=== PATIENT | male | born 1995 | race Caucasian/White ===

== ENCOUNTER 2020-09-14 14:20 | Emergency (ER) | payer OTHER, SELFPAY ==
[2020-09-14 14:30] VITALS: BP 133/83; PULSE 94; RESP 20; TEMP 36.7; O2SAT 98; BMI 28.4
--- NOTE | 2020-09-14 14:35 | XR_ITS ---
PROCEDURE: XR HAND RT MIN 3V CLINICAL INDICATION: pain COMPARISON: No exams were available for comparison FINDINGS: No acute fractures or dislocations. Bone density is normal. The carpals, metacarpals and phalanges are unremarkable. Soft tissue swelling of the 1st digit. IMPRESSION: No acute fractures or dislocations. Dictated by: Teena Martin 09/14/2020 15:11 Teena Martin in [place] 09/14/2020 15:11
--- NOTE | 2020-09-14 15:10 | HMH.EDUTC ---
[facility] [place] Clinical Impression: Superficial abrasion, Need for tetanus, diphtheria, and acellular pertussis (Tdap) vaccine Crushing injury of right thumb Qualifiers: Encounter type: initial encounter Qualified Code(s): S67.01XA - Crushing injury of right thumb, initial encounter Disposition: Home, Self-Care Condition on Discharge: Good Instructions: DI for Crush Injury Additional Instructions: Rest the extremity, Elevate the extremity as tolerated while you are resting. Take ibuprofen for pain. I sent in a prescription to your pharmacy. Follow up with Dr. Martin (orthopedics). I put in a referral but you need to call his office and schedule an appointment. Follow up with your regular doctor. GO TO THE ER FOR ANY WORSENING SYMPTOMS Prescriptions: Ibuprofen [Ibuprofen 800mg Tablet] 800 mg PO Q8HP PRN #30 tab PRN Reason: Moderate Pain Transmission Status: Received by [facility] Mupirocin [Bactroban 2% Ointment 22gm tube] 1 applicatio TP TID 7 Days #1 tube Transmission Status: Received by [facility] Referrals: Jeni Mcarthur APRN [Primary Care Provider] - Zackery Martin MD [Staff Physician] - Forms: Work/School Release Time of Disposition: 15:24 Medical Decision Making - Medical Records Medical records reviewed: No: I reviewed the patient's medical records. - Homero Inquiry Pt receiving controlled substance: No Vital Signs: 09/14/20 14:30 09/14/20 15:32 Temperature 98.0 F 98.0 F Temperature Source Oral Pulse Rate 94 H Pulse Rate [Right Brachial] 94 H Respiratory Rate 20 20 Blood Pressure 133/83 Blood Pressure [Right Arm] 133/83 Blood Pressure Mean [Right Arm] 99 Blood Pressure Source [Right Arm] Automatic Cuff Blood Pressure Position [Right Arm] Sitting 02 Sat by Pulse Oximetry 98 Oxygen Delivery Method Room Air Orders (Tests/Meds): ED MEDICATIONS Discontinued Medications Generic Name Dose Route Start Last Admin Trade Name Freq PRN Reason Stop Dose Admin Tetanus/Reduced Diphtheria/Acell Pertussis 0.5 ml 09/14/20 14:47 09/14/20 14:53 Tet/Diphth/Pert-Adult 0.5ml Syringe IM 09/14/20 14:48 0.5 ml .ONCE ONE Administration - Radiology Data #1 Image(s): Hand Image Reviewed: Yes I reviewed the patient's radiology image, Yes I have reviewed radiologist's interpretation Preliminary Findings: Normal/NAD, No Fracture Seen [facility] [place] - General Stated complaint: [id number] Rt thumb injury Time Seen by Provider: 09/14/20 14:40 Mode of Arrival: Ambulatory Source of Information: Patient Limitations: No Limitations Description of Symptoms (Recalled from Triage Doc. by RN): PATIENT STATES THAT WHILE AT WORK TODAY HIS RIGHT THUMB BECAME CAUGHT BETWEEN A CHAIN AND THE TAIL GATE OF A TRUCK. SWELLING AND ABRASIONS NOTED HEENT Symptoms (Recalled from RN notes): No Resp Symptoms (Recalled from RN notes): No Skin Symptoms (Recalled from RN notes): No MS Symptoms (Recalled from RN notes): Yes Functional Status (Recalled from RN notes): WNL - History of Present Illness Provider Complaint: He was at work today when a dump truck bed tail gate fell open. As he was trying to catch it, his right thumb got hung between the tail gate and the chain on it. He is having right thumb pain and swelling. He also has superficial abrasion on his right hand. He denies any other injury. His tetanus immunization is not up to date. - Related Data Previous Rx's Medication Instructions Recorded Ibuprofen [Ibuprofen 800mg 800 mg PO Q8HP PRN #30 tab 09/14/20 Tablet] Mupirocin [Bactroban 2% Ointment 1 applicatio TP TID 7 Days #1 tube 09/14/20 22gm tube] Allergies Allergy/AdvReac Type Severity Reaction Status Date / Time No Known Allergies Allergy Verified 09/14/20 14:46 - Worker's Comp Is this a Worker's Comp case?: No [facility] History - Hepatitis A Screen Drug use history?: No High risk sexual behaviors?: No History of
[2020-09-14 15:32] VITALS: BP 133/83; PULSE 94; RESP 20; TEMP 36.7; O2SAT 98
== END 2020-09-14 15:36 | disposition home or self-care (01) ==
PROVIDERS: Emergency Provider Nurse Practitioner Family; PCP Nurse Practitioner Family
DX: S67.01XA Crushing injury of right thumb, initial encounter (principal); W23.0XXA Caught, crushed, jammed, or pinched between moving objects, initial encounter; Y92.69 Other specified industrial and construction area as the place of occurrence of the external cause; Y99.0 Civilian activity done for income or pay; Z23 Encounter for immunization
CPT/HCPCS: 73130; 90471; 90715; 99202; G0463

== ENCOUNTER 2021-07-12 12:13 | Emergency (ER) | payer OTHER, SELFPAY ==
[2021-07-12 12:15] VITALS: BP 136/58; PULSE 89; RESP 18; TEMP 36.7; O2SAT 98; BMI 28.4
--- NOTE | 2021-07-12 12:22 | PC.NURSE ---
ED MD at bedside
--- NOTE | 2021-07-12 12:24 | XR_ITS ---
FINAL REPORT CLINICAL HISTORY: trauma to distal 3rd digit FINDINGS: LEFT HAND: Three views of the left hand were obtained. There is a nondisplaced tuft fracture of the 3rd distal phalanx. Visualized joint spaces are normally aligned. There soft tissue swelling of the tip of the 3rd digit. IMPRESSION: Tuft fracture of the 3rd distal phalanx with soft tissue swelling. Reviewed, Interpreted and Dictated by Sammy Andrade III, MD Transcribed by Jagruti Lion Authenticated by Sammy Andrade III, MD on 07/12/2021 01:06:45 PM [facility]
--- NOTE | 2021-07-12 12:25 | PC.NURSE ---
Patient to radiology with radiation therapy technologist
--- NOTE | 2021-07-12 12:36 | PC.NURSE ---
pt states he took 600mg motrin before arrival
--- NOTE | 2021-07-12 12:43 | HMH.EDGENADL ---
ED Disposition Clinical Impression: Open fracture of phalanx of left middle finger Qualifiers: Encounter type: initial encounter Phalanx: distal Fracture alignment: nondisplaced Qualified Code(s): S62.663B - Nondisplaced fracture of distal phalanx of left middle finger, initial encounter for open fracture Disposition: Home, Self-Care Condition on Discharge: Good Instructions: DI for Laceration Repair Prescriptions: Amoxicillin/Potassium Clav [Amox-Clav 875-125 mg Tablet] 1 tab PO BID #14 tab Transmission Status: Pending to [facility] Ibuprofen [Ibuprofen 800mg Tablet] 800 mg PO TIDP PRN #20 tab PRN Reason: Moderate Pain Transmission Status: Pending to [facility] Referrals: Jeni Mcarthur APRN [Primary Care Provider] - Benjamin Agarwal MD [Referring] - - Critical Care Critical Care Time: No Attestation: On 07/12/21, the high probability of a clinically significant, sudden or life threatening deterioration of the following system(s) required my full and direct attention, intervention and personal management. The time I documented below is in addition to time spent performing reported procedures but includes the following listed in this critical care notation. Medical Decision Making - Medical Records Medical records reviewed: Yes: I reviewed the patient's medical records. - Homero Inquiry Pt receiving controlled substance: No Vital Signs: 07/12/21 12:15 Temperature 98.1 F Temperature Source Oral Pulse Rate [Left Radial] 89 Respiratory Rate 18 Blood Pressure [Right Arm] 136/58 L Blood Pressure Mean [Right Arm] 84 Blood Pressure Source [Right Arm] Automatic Cuff Blood Pressure Position [Right Arm] Sitting 02 Sat by Pulse Oximetry 98 Oxygen Delivery Method Room Air Orders (Tests/Meds): ED MEDICATIONS Discontinued Medications Generic Name Dose Route Start Last Admin Trade Name Freq PRN Reason Stop Dose Admin Ibuprofen 800 mg 07/12/21 12:24 07/12/21 12:36 Ibuprofen 400 Mg Tablet PO 07/12/21 12:25 Not Given ONCE ONE - Radiology Data #1 Image(s): Hand Image Reviewed: Yes I reviewed the patient's radiology results, Yes I reviewed the patient's radiology image, Yes I have reviewed radiologist's interpretation IMPRESSION: Tuft fracture of the 3rd distal phalanx with soft tissue swelling. - Reevaluation(s) Time: 13:27 Reevaluation #1: On reevaluation, the patient is feeling much better. Tolerated procedure well. We placed patient in immobilizer. Also placed on antibiotics. He will need to follow-up with hand surgery. Given strict return precautions. Verbalized understanding. Medical Decision Narrative: 25-year-old male presented to the emergency department with injury to his left finger. Concern for crush injury versus fracture. Tetanus up-to-date. Work-up initiated. General Adult HPI - General Chief complaint: Wound/Laceration Stated complaint: wc 07/12/21 lt middle finger Time Seen by Provider: 07/12/21 12:20 Mode of Arrival: Ambulatory Limitations: No Limitations Description of Symptoms (Recalled from ER Triage Doc. by RN): c/o cut to left middle and ring finger after being smashed in between culvert at work - History of Present Illness HPI narrative: This is a 25-year-old male presented to the emergency department with a injury to his left hand. Patient states that he smashed his fingers while he was at work. He is having some pain in his middle and ring finger left hand. There is small laceration to the distal aspect of the middle finger. No active bleeding at this time. The patient has worsening pain with movement. Denies any other injuries. Tetanus up-to-date. Not have any chest pain or shortness of breath. No headache or change in vision. No vomiting or diarrhea. - Related Data Previous Rx's Medication Instructions Recorded Amoxicillin/Potassium Clav 1 tab PO BID #14 tab 07/12/21 [Amox-Clav 875-125 mg Tablet*
--- NOTE | 2021-07-12 13:17 | PC.NURSE ---
ED MD at bedside for update on POC
[2021-07-12 13:41] VITALS: BP 136/58; PULSE 89; RESP 18; TEMP 36.7; O2SAT 98
== END 2021-07-12 13:41 | disposition home or self-care (01) ==
PROVIDERS: Emergency Provider Emergency Medicine; PCP Nurse Practitioner Family
DX: S62.663B Nondisplaced fracture of distal phalanx of left middle finger, initial encounter for open fracture (principal); S60.10XA Contusion of unspecified finger with damage to nail, initial encounter; Z79.1 Long term (current) use of non-steroidal anti-inflammatories (NSAID); X58.XXXA Exposure to other specified factors, initial encounter; Y92.69 Other specified industrial and construction area as the place of occurrence of the external cause
CPT/HCPCS: 12001; 73130; 99283

== ENCOUNTER 2022-07-25 17:24 | Emergency (ER) | payer OTHER, SELFPAY ==
[2022-07-25 17:35] VITALS: BP 140/91; PULSE 90; RESP 16; TEMP 36.8; O2SAT 98; BMI 25.4
--- NOTE | 2022-07-25 17:36 | PC.NURSE ---
HS aware of needle stick
--- NOTE | 2022-07-25 17:48 | PC.NURSE ---
[facility] HERE D[facility]
--- NOTE | 2022-07-25 17:57 | HMH.EDGENADL ---
Discharge Plan Disposition Patient Disposition: Home, Self-Care Condition: Good Prescriptions Prescriptions: No Action ibuprofen 800 MG tablet 800 mg PO TIDP PRN (Reason: Moderate Pain) Qty: 20 0RF amoxicillin-pot clavulanate 1 EACH tablet 1 tab PO BID Qty: 14 0RF Referrals Follow up/Referrals: Provider,Referral, [Primary Care Provider] - See instructions Activity Restrictions/Add. Instructions Additional Instructions/Restrictions: Follow-up with employee health for test results and further treatment. Clinical Impressions Clinical Impression: Needlestick injury accident Instructions Patient Instructions: DI for Accidental Exposure to Body Fluids Discharge ED Provider: Capo Hernandez General Adult HPI General Chief complaint: Extremity Injury, Upper Stated complaint: WC 07/25@1720 finger stick Time Seen by Provider: 07/25/22 17:42 Mode of Arrival: Ambulatory Source of Information: Patient Limitations: No Limitations Description of Symptoms (Recalled from ER Triage Doc. by RN): Presents while working after sustaining a needle stick. Pt states he was in the breakroom where he was throwing away what he thought was trash from the table, however ended up being an uncovered lancet puncturing right thumb. Pt washed site upon arrival to ED. 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 He was stuck in the thumb pad of his right thumb with a lancet that had been left on the table that he thought was a piece of trash. He does not know whether he has been immunized against hepatitis B. The source of the lancet is unknown, it is unknown whether it was used, and if so the HIV or hepatitis status of the person who may have used it. He is up-to-date on tetanus status. Related Data Previous Rx's Medication Instructions Recorded amoxicillin 875 mg-potassium 1 tab PO BID #14 tabs 07/12/21 clavulanate 125 mg tablet ibuprofen 800 mg tablet 800 mg PO TIDP PRN Moderate Pain 07/12/21 #20 tabs Allergies Allergy/AdvReac Type Severity Reaction Status Date / Time No Known Allergies Allergy Verified 11/03/20 09:06 [facility] Disclaimer: The information contained in this section may have been updated after the patient was seen, as this information can be updated by other users. Social History Smoking Status: Unknown if ever smoked alcohol intake: never current occupational status: employed Travel in the last 8 weeks: None ROS Obtained: Yes Systems reviewed as appropriate & no additional complaints except as documented Constitutional Constitutional: Denies fever(s) and Denies weakness Musculoskeletal Musculoskeletal: Denies numbness Integumentary/Breasts Skin/Breast: Reports wounds Neurologic Neurologic: Denies numbness and Denies weakness Physical Exam General General appearance: alert and in no apparent distress Chest Chest inspection: Present normal inspection and symmetric chest wall rise Respiratory Respiratory exam: Absent respiratory distress Cardiovascular Cardiovascular exam: Present regular rate Expanded Upper Extremity Exam Right: Hand L/R front image: 1. other (Tiny puncture wound) Neurological Exam Neurological exam: Present alert and oriented X3; Absent motor sensory deficit Psychiatric Psychiatric exam: Present normal affect and normal mood Skin Skin exam: Present warm and dry Medical Decision Making Homero Inquiry Pt receiving controlled substance: No Vital Signs: 07/25/22 17:35 Temperature 98.3 F Temperature Source Oral Pulse Rate [Right] 90 Respiratory Rate 16 Blood Pressure [Left Arm] 140/91 H Blood Pressure Mean [Left Arm] 107 02 Sat by Pulse Oximetry 98 Oxygen Delivery Method Room Air Lab Data Lab Results 07/25/22 17:50: WBC 7.6, RBC 5.42, Hgb 16.0, Hct 48.2, MCV 88.9, MCH 29.4, MCHC 33.1, RDW 13.0, Plt Count 283, MPV 8.5, Neut % (Aut
[2022-07-25 18:01] LABS: Basophils # 0.1 K/mm3 (0-0.2); Basophils % 1.3 % (0.1-2.0); Eosinophils # 0.2 K/mm3 (0.0-0.4); Eosinophils % 2.9 % (0.1-12.0); Hematocrit 48.2 % (42.0-52.0); Lymphocytes # 2.1 K/mm3 (0.7-4.5); Lymphocytes % 28.1 % (10-50); Mean Corpuscular HGB Conc 33.1 g/dL (31.8-35.4); Mean Corpuscular Hemoglobin 29.4 pg (27.0-31.2); Mean Corpuscular Volume 88.9 fl (80-94); Mean Platelet Volume 8.5 fl (7.4-10.4); Monocytes # 0.4 K/mm3 (0.1-1.0); Monocytes % 4.8 % (1.7-9.3); Neutrophils # 4.8 K/mm3 (1.8-7.8); Neutrophils % 62.9 % (37.0-80.0); Platelet Count 283 K/mm3 (142-424); Red Blood Count 5.42 M/mm3 (4.60-6.20); White Blood Count 7.6 K/mm3 (4.8-10.8)
[2022-07-25 18:10] LABS: Bilirubin,Unconjugated 0.2 mg/dL (0.0-1.1)
[2022-07-25 18:11] LABS: Alanine Aminotransferase 36 U/L (12-78); Albumin Level 5.4 g/dl (3.5-5.0); Alkaline Phosphatase 74 U/L (38-126); Aspartate Amino Transferase 37 U/L (17-59); Bilirubin,Direct 0.3 mg/dl (0.0-0.4); Bilirubin,Indirect 0.2 mg/dL (0.0-0.9); Bilirubin,Total 0.5 mg/dl (0.2-1.3); Total Protein,Serum 8.5 g/dl (6.3-8.2)
[2022-07-25 18:14] LABS: Activated Partial Thrombo Time 29.3 seconds (22.8-30.6); INR 1.06 (0.9-1.1); Prothrombin Time 11.4 seconds (10.1-12.5)
[2022-07-25 18:30] VITALS: BP 144/92; PULSE 84; RESP 20; TEMP 37.1; O2SAT 99
--- NOTE | 2022-07-25 18:32 | PC.NURSE ---
discussed education with pt. Naranjo at the bedside with pt.
[2022-07-27 11:11] LABS: HIV Screen 4th Generation wRfx Non Reactive (Non Reactive)
[2022-08-06 05:11] LABS: Hepatitis B Surf Ab Quant <3.1
[2022-08-06 05:12] LABS: Hepatitis B Surface Antigen NEGATIVE; Hepatitis C Antibody NON REACTIVE
== END 2022-07-25 18:32 | disposition home or self-care (01) ==
PROVIDERS: Emergency Provider Emergency Medicine
DX: S61.031A Puncture wound without foreign body of right thumb without damage to nail, initial encounter (principal); W46.1XXA Contact with contaminated hypodermic needle, initial encounter
CPT/HCPCS: 36415; 80076; 85025; 85610; 85730; 86703; 86706; 87340; 87380; 99284; 99285; G0432

== ENCOUNTER → 2022-09-05 17:21 | Outpatient (CLI) | payer OTHER, SELFPAY ==
[2022-09-05 19:25] LABS: Alanine Aminotransferase 42 U/L (12-78); Aspartate Amino Transferase 32 U/L (17-59); Bilirubin,Unconjugated 0.3 mg/dL (0.0-1.1)
[2022-09-05 19:26] LABS: Albumin Level 5.3 g/dl (3.5-5.0); Alkaline Phosphatase 69 U/L (38-126); Bilirubin,Direct 0.1 mg/dl (0.0-0.4); Bilirubin,Indirect 0.3 mg/dL (0.0-0.9); Bilirubin,Total 0.4 mg/dl (0.2-1.3); Total Protein,Serum 8.1 g/dl (6.3-8.2)
[2022-09-21 19:51] LABS: HIV Screen 4th Generation wRfx Non Reactive; Hepatitis B Surface Antigen Negative; Hepatitis C Antibody Non Reactive
== END ==
DX: Z04.2 Encounter for examination and observation following work accident (principal); W46.1XXA Contact with contaminated hypodermic needle, initial encounter; Z77.21 Contact with and (suspected) exposure to potentially hazardous body fluids; Z11.4 Encounter for screening for human immunodeficiency virus [HIV]
CPT/HCPCS: 36415; 80076; 86703; 87340; 87380; G0432

== ENCOUNTER → 2022-10-17 15:09 | Outpatient (CLI) | payer OTHER, SELFPAY ==
[2022-10-17 16:18] LABS: Bilirubin,Unconjugated 0.4 mg/dL (0.0-1.1)
[2022-10-17 16:19] LABS: Alanine Aminotransferase 44 U/L (12-78); Alkaline Phosphatase 59 U/L (38-126); Aspartate Amino Transferase 35 U/L (17-59); Bilirubin,Indirect 0.4 mg/dL (0.0-0.9); Bilirubin,Total 0.4 mg/dl (0.2-1.3); Total Protein,Serum 7.8 g/dl (6.3-8.2)
[2022-10-19 10:18] LABS: HIV Screen 4th Generation wRfx Non Reactive (Non Reactive)
[2022-11-20 00:25] LABS: Hepatitis B Surface Antigen Negative; Hepatitis C Antibody Non Reactive
== END ==
DX: W46.1XXA Contact with contaminated hypodermic needle, initial encounter (principal); Z77.21 Contact with and (suspected) exposure to potentially hazardous body fluids; Z11.4 Encounter for screening for human immunodeficiency virus [HIV]; Z04.2 Encounter for examination and observation following work accident
CPT/HCPCS: 36415; 80076; 86703; 87340; 87380; G0432

== ENCOUNTER → 2023-01-24 17:03 | Outpatient (CLI) | payer OTHER, SELFPAY ==
[2023-01-24 17:57] LABS: Alanine Aminotransferase 42 U/L (12-78); Albumin Level 5.3 g/dl (3.5-5.0); Alkaline Phosphatase 69 U/L (38-126); Aspartate Amino Transferase 34 U/L (17-59); Bilirubin,Direct 0.1 mg/dl (0.0-0.4); Bilirubin,Indirect 0.3 mg/dL (0.0-0.9); Bilirubin,Total 0.4 mg/dl (0.2-1.3); Bilirubin,Unconjugated 0.2 mg/dL (0.0-1.1); Total Protein,Serum 8.3 g/dl (6.3-8.2)
[2023-01-26 11:33] LABS: HIV Screen 4th Generation wRfx Non Reactive (Non Reactive)
[2023-01-30 10:52] LABS: Hepatitis B Surface Antigen Negative; Hepatitis C Antibody Non Reactive
== END ==
PROVIDERS: PCP Family Medicine
DX: Z77.21 Contact with and (suspected) exposure to potentially hazardous body fluids (principal); Z11.4 Encounter for screening for human immunodeficiency virus [HIV]; W46.1XXA Contact with contaminated hypodermic needle, initial encounter
CPT/HCPCS: 36415; 80076; 86703; 87340; 87380; G0432